=== PATIENT | female | born 1995 | race African-American/Black ===

== ENCOUNTER 2016-11-01 18:30 | Emergency (ER) | payer SELFPAY ==
[~2016-11-01] VITALS: Ht 154.9 cm; Wt 81.6 kg
[2016-11-01 19:00] VITALS: BP 162/62
[2016-11-01 19:56] LABS: BILIRUBIN,URINE NEGATIVE (NEG); GLUCOSE,URINE NEGATIVE (NEG); NITRITE,URINE NEGATIVE (NEG); PROTEIN,URINE NEGATIVE (NEG-TRACE)
[2016-11-01 20:07] LABS: BACTERIA,URINE FEW /HPF (0-FEW); RBC,URINE 0 /HPF (0-2); SQUAMOUS EPITHELIAL CELL,UR FEW /LPF; WBC,URINE OCC /HPF (0-4)
[2016-11-01] MEDS ORDERED: METR500T PO (20:36)
--- NOTE | 2016-11-01 20:36 | PHYS DOC ---
Past Medical History Past Medical History: No Pertinent History Past Surgical History: No Surgical History Additional Information: 7-8 cigarettes daily Alcohol Use: Rarely Drug Use: None Adult General Chief Complaint Chief Complaint: VAGINAL PROBLEM HPI HPI Patient is a 21 year old female who presents with vaginal discharge for 1 week. Patient denies any concerns for STDs. Denies any urgency frequency dysuria. Denies any chance she is . Review of Systems Review of Systems Constitutional: Denies fever or chills [] GI: vaginal discharge for 1 week. : Denies dysuria or hematuria [] Musculoskeletal: Denies back pain or joint pain [] Integument: Denies rash or skin lesions [] Neurologic: Denies headache, focal weakness or sensory changes [] Allergies Allergies Allergies Coded Allergies Type Severity Reaction Last Updated Verified No Known Drug Allergies 12/05/15 No Physical Exam Physical Exam Constitutional: Well developed, well nourished, no acute distress, non-toxic appearance. [] Abdomen: Bowel sounds normal, soft, no tenderness, no masses, no pulsatile masses. [] Pelvic exam External pelvic appears normal, cervix is closed, no CMT, no adnexal tenderness , small amount of white discharge in the vaginal vault. Skin: Warm, dry, no erythema, no rash. [] Back: No tenderness, no CVA tenderness. [] Extremities: No tenderness, no cyanosis, no clubbing, ROM intact, no edema. [] Neurologic: Alert and oriented X 3, normal motor function, normal sensory function, no focal deficits noted. [] Psychologic: Affect normal, judgement normal, mood normal. [] Current Patient Data Vital Signs Vital Signs Date Time Temp Pulse Resp B/P (MAP) Pulse Ox O2 Delivery O2 Flow Rate FiO2 11/01/16 19:00 98.5 87 16 97 Room Air 98.5 Lab Values Laboratory Tests Test 11/01/16 19:12 11/01/16 19:21 Urine Collection Type Unknown Urine Color Yellow Urine Clarity Clear Urine pH 7.0 Urine Specific [place] 1.020 Urine Protein Negative mg/dL (NEG-TRACE) Urine Glucose (UA) Negative mg/dL (NEG) Urine Ketones (Stick) Negative mg/dL (NEG) Urine Blood Negative (NEG) Urine Nitrite Negative (NEG) Urine Bilirubin Negative (NEG) Urine Urobilinogen Dipstick 1.0 mg/dL (0.2 mg/dL) Urine Leukocyte Esterase Negative (NEG) Urine RBC 0 /HPF (0-2) Urine WBC Occ /HPF (0-4) Urine Squamous Epithelial Cells Few /LPF Urine Bacteria Few /HPF (0-FEW) Urine Mucus Mod /LPF POC Urine HCG, Qualitative Hcg negative (Negative) Microbiology 11/01/16 Wet Prep - Final, Complete EKG EKG [] Radiology/Procedures Radiology/Procedures [] Course & Med Decision Making Course & Med Decision Making Pertinent Labs and Imaging studies reviewed. (See chart for details) Patient is in the ED with vaginal discharge for 1 week, no concerns for STDs. Negative urine hCG, urine analysis is negative for infection. Positive for bacterial vaginosis, discharged with Flagyl. Follow-up with [facility] in 1-2 weeks. Dragon Disclaimer Dragon Disclaimer This electronic medical record was generated, in whole or in part, using a voice recognition dictation system. Departure Departure Impression: Primary Impression: Bacterial vaginosis Disposition: HOME, SELF-CARE Condition: STABLE Referrals: NO PCP (PCP) KRYSTINA HAIDER MD follow up in one week Patient Instructions: Bacterial Vaginosis, [id number] Additional Instructions: You tested positive for bacterial vaginosis, this is not a sexually transmitted diseases. We put you on antibiotics to clear this infection. Follow-up with your own [facility] in the next 1-2 weeks. Scripts Metronidazole (FLAGYL) 500 Mg Tablet 1 TAB PO BID, #14 TAB Prov: CONNER ALEXANDRE APRN 11/01/16 CONNER ALEXANDRE APRN Nov 01, 2016 20:36
== END 2016-11-01 20:42 | disposition home or self-care (01) ==
LOC: ER 18:30
DX: N76.0 Acute vaginitis (principal); F17.210 Nicotine dependence, cigarettes, uncomplicated
CPT/HCPCS: 81001; 81025; 87491; 87591; 99284; Q0111

== ENCOUNTER 2017-03-23 04:35 | Emergency (ER) | payer SELFPAY | END 2017-03-23 04:56 | disposition home or self-care (01) | LOC: ER 04:35 | DX: H92.02 Otalgia, left ear (principal) | CPT/HCPCS: 99283 ==

== ENCOUNTER 2017-08-27 09:47 | Emergency (ER) | payer OTHER ==
[2017-08-27] MEDS: ONDANSETRON ODT 4 MG TAB.RAPDIS. PO ×2 (10:26→11:59)
[2017-08-27 10:28] LABS: URINE HCG POC HCG NEGATIVE (Negative)
[2017-08-27 10:32] LABS: BILIRUBIN,URINE NEGATIVE (NEG); CLARITY,URINE CLOUDY; COLOR,URINE YELLOW; GLUCOSE,URINE NEGATIVE (NEG); NITRITE,URINE NEGATIVE (NEG); PROTEIN,URINE NEGATIVE (NEG-TRACE)
[2017-08-27 10:48] LABS: BACTERIA,URINE FEW /HPF (0-FEW); RBC,URINE OCC /HPF (0-2); SQUAMOUS EPITHELIAL CELL,UR FEW /LPF; WBC,URINE OCC /HPF (0-4)
[2017-08-27] MEDS ORDERED: IV NORMAL SALINE 1000ML BAG 1,000 ML IV (11:15)
[2017-08-27] MEDS ORDERED: ONDANSETRON PF 4 MG/2 ML VIAL. IV (11:15)
== END 2017-08-27 12:00 | disposition home or self-care (01) ==
LOC: ER 12:00
DX: R11.0 Nausea (principal); R10.13 Epigastric pain
CPT/HCPCS: 81001; 81025; 99283; Q0162

== ENCOUNTER 2019-06-18 02:58 | Emergency (ER) | payer SELFPAY ==
[~2019-06-18] VITALS: Ht 157.5 cm; Wt 77.2 kg
[~2019-06-18 02:58] MED LIST: METR500T PO; ONDA4TAB10 SL
[2019-06-18 03:09] VITALS: BP 139/77
[2019-06-18] MEDS ORDERED: CLINDAMYCIN VAG (03:34)
--- NOTE | 2019-06-18 03:35 | PHYS DOC ---
Past Medical History Past Medical History: No Pertinent History Past Surgical History: No Surgical History Smoking Status: Current Every Day Smoker Alcohol Use: Occasionally Drug Use: None General Adult EDM: Chief Complaint: VAGINAL PROBLEM HPI: HPI: Patient is a 24 year old female presents with the chief complaint of vaginal itch. Initial onset 2 weeks ago shortly after shaving vaginal area. Patient states she saved again 2 days ago. Tonight itch is worse--- scratched to the point of opening wounds Review of Systems: Review of Systems: Constitutional: Denies fever or chills. [] Eyes: Denies change in visual acuity. [] HENT: Denies nasal congestion or sore throat. [] Respiratory: Denies cough or shortness of breath. [] Cardiovascular: Denies chest pain or edema. [] GI: Denies abdominal pain, nausea, vomiting, bloody stools or diarrhea. [] : Denies dysuria. [] Musculoskeletal: Denies back pain or joint pain. [] Integument: Denies rash. [] Neurologic: Denies headache, focal weakness or sensory changes. [] Endocrine: Denies polyuria or polydipsia. [] Lymphatic: Denies swollen glands. [] Psychiatric: Denies depression or anxiety. [] Heart Score: Risk Factors: Risk Factors: DM, Current or recent (<one month) smoker, HTN, HLP, family history of CAD, obesity. Risk Scores: Score 0 - 3: 2.5% MACE over next 6 weeks - Discharge Home Score 4 - 6: 20.3% MACE over next 6 weeks - Admit for Clinical Observation Score 7 - 10: 72.7% MACE over next 6 weeks - Early Invasive Strategies Allergies: Allergies: Allergies Coded Allergies Type Severity Reaction Last Updated Verified No Known Drug Allergies 12/05/15 No Physical Exam: PE: Constitutional: Well developed, well nourished, no acute distress, non-toxic appearance. [] HENT: Normocephalic, atraumatic, bilateral external ears normal, oropharynx moist, no oral exudates, nose normal. [] Eyes: PERRLA, EOMI, conjunctiva normal, no discharge. [] Neck: Normal range of motion, no tenderness, supple, no stridor. [] Cardiovascular:Heart rate regular rhythm, no murmur [] Lungs & Thorax: Bilateral breath sounds clear to auscultation [] Abdomen: Bowel sounds normal, soft, no tenderness, no masses, no pulsatile masses. [] Skin: Warm, dry, no erythema, no rash. [] Back: No tenderness, no CVA tenderness. [] Extremities: No tenderness, no cyanosis, no clubbing, ROM intact, no edema. [] Neurologic: Alert and oriented X 3, normal motor function, normal sensory function, no focal deficits noted. [] Psychologic: Affect normal, judgement normal, mood normal. [] -- vaginal evaluated with real estate administrative assistant, Open would left labia. Current Patient Data: Labs: Laboratory Tests Test 06/18/19 03:15 POC Urine HCG, Qualitative Hcg negative (Negative) EKG: EKG: [] Radiology/Procedures: Radiology/Procedures: [] Course & Med Decision Making: Course & Med Decision Making Pertinent Labs and Imaging studies reviewed. (See chart for details) []Patient will be placed on clindamycin vaginal cream. Patient can take [id number] Benadryl as needed for itch. Hollie Disclaimer: Hollie Disclaimer: This electronic medical record was generated, in whole or in part, using a voice recognition dictation system. Departure Departure Impression: Primary Impression: Itching in the vaginal area Additional Impression: Vaginitis Disposition: HOME, SELF-CARE Condition: STABLE Referrals: NO PCP (PCP) Patient Instructions: Vaginitis, [id number] Scripts [Clindamycin Cream 2%] No Conflict Check 1 APPFUL VAG DAILY for 7 Days, #1 TUBE Prov: KEVEN DURAN I DO 06/18/19 [clindamycin va] No Conflict Check Prov: KEVEN DURAN I DO 06/18/19 KEVEN DURAN DO Jun 18, 2019 03:35
== END 2019-06-18 03:42 | disposition home or self-care (01) ==
LOC: ER 02:58
DX: N76.0 Acute vaginitis (principal); F17.200 Nicotine dependence, unspecified, uncomplicated
CPT/HCPCS: 81025; 99283

== ENCOUNTER 2019-08-06 22:22 | Emergency (ER) | payer SELFPAY ==
[~2019-08-06] VITALS: Ht 154.9 cm; Wt 82.0 kg
[~2019-08-06 22:22] MED LIST changes: +CLINDAMYCIN VAG
[2019-08-06 23:20] LABS: BILIRUBIN,URINE SMALL (NEG); CLARITY,URINE CLEAR; COLOR,URINE YELLOW; NITRITE,URINE NEGATIVE (NEG); PH,URINE 6.5 (<5.0-8.0); PROTEIN,URINE NEGATIVE (NEG-TRACE)
[2019-08-06 23:27] LABS: SQUAMOUS EPITHELIAL CELL,UR MOD /LPF; U PREG PATIENT NEGATIVE (NEG)
[2019-08-06 23:29] LABS: BACTERIA,URINE FEW /HPF (0-FEW); RBC,URINE 0 /HPF (0-2); WBC,URINE 0 /HPF (0-4)
--- NOTE | 2019-08-07 01:19 | PHYS DOC ---
Past Medical History Past Medical History: No Pertinent History Past Surgical History: No Surgical History Smoking Status: Current Every Day Smoker Alcohol Use: Occasionally Drug Use: None General Adult EDM: Chief Complaint: VAGINAL PROBLEM HPI: HPI: Patient is a 24 year old female who presents for evaluation vaginal area discomfort and itching. She has a discharge present. Symptoms started close to 1 month ago. She states she has a white discharge. She states her last period is due ninth. Patient is 0 para 0. Patient is otherwise benign-appeari ng with no urine symptoms, fever or chills reported Review of Systems: Review of Systems: Constitutional: Denies fever or chills. [] Eyes: Denies change in visual acuity. [] HENT: Denies nasal congestion or sore throat. [] Respiratory: Denies cough or shortness of breath. [] Cardiovascular: Denies chest pain or edema. [] GI: Denies abdominal pain, nausea, vomiting, bloody stools or diarrhea [] : Denies dysuria. [Patient haswhite vaginal discharge and itching in her groin area] Musculoskeletal: Denies back pain or joint pain. [] Integument: Denies rash. [] Neurologic: Denies headache, focal weakness or sensory changes. [] Endocrine: Denies polyuria or polydipsia. [] Lymphatic: Denies swollen glands. [] Psychiatric: Denies depression or anxiety. [] Heart Score: Risk Factors: Risk Factors: DM, Current or recent (<one month) smoker, HTN, HLP, family history of CAD, obesity. Risk Scores: Score 0 - 3: 2.5% MACE over next 6 weeks - Discharge Home Score 4 - 6: 20.3% MACE over next 6 weeks - Admit for Clinical Observation Score 7 - 10: 72.7% MACE over next 6 weeks - Early Invasive Strategies Allergies: Allergies: Allergies Coded Allergies Type Severity Reaction Last Updated Verified No Known Drug Allergies 12/05/15 No Physical Exam: PE: Constitutional: Well developed, well nourished, mild acute distress, non-toxic appearance. [] HENT: Normocephalic, atraumatic, bilateral external ears normal, oropharynx moist, no oral exudates, nose normal. [] Eyes: PERRL, EOMI, conjunctiva normal, no discharge. [] Neck: Normal range of motion, no tenderness, supple, no stridor. [] Cardiovascular:Heart rate regular rhythm, no murmur [] Lungs & Thorax: Bilateral breath sounds clear to auscultation [] Abdomen: Bowel sounds normal, soft, no tenderness, no masses. [] Skin: Warm, dry, no erythema, no rash. [] Back: No tenderness, no CVA tenderness. [] Extremities: No tenderness, no cyanosis, no clubbing, ROM intact, no edema. [] Neurologic: Alert and oriented X 3, normal motor function, normal sensory function, no focal deficits noted. [] Psychologic: Affect normal, judgement normal, mood normal. : Nursing room worker present, white discharge present, no external lesions present, no bleeding, no adnexal or uterine tenderness [] Current Patient Data: Labs: Laboratory Tests Test 08/06/19 22:24 Urine Collection Type Unknown Urine Color Yellow Urine Clarity Clear Urine pH 6.5 (<5.0-8.0) Urine Specific [place] >=1.030 (1.000-1.030) Urine Protein Negative mg/dL (NEG-TRACE) Urine Glucose (UA) Negative mg/dL (NEG) Urine Ketones (Stick) Trace mg/dL (NEG) Urine Blood Negative (NEG) Urine Nitrite Negative (NEG) Urine Bilirubin Small (NEG) Urine Urobilinogen Dipstick 1.0 mg/dL (0.2 mg/dL) Urine Leukocyte Esterase Negative (NEG) Urine RBC 0 /HPF (0-2) Urine WBC 0 /HPF (0-4) Urine Squamous Epithelial Cells Mod /LPF Urine Bacteria Few /HPF (0-FEW) Urine Mucus Marked /LPF Urine Test Negative (NEG) Vital Signs: Vital Signs Date Time Temp Pulse Resp B/P (MAP) Pulse Ox O2 Delivery O2 Flow Rate FiO2 08/06/19 22:35 98.5 103 16 141/76 (97) 100 Room Air 98.5 EKG: EKG: [] Radiology/Procedures: Radiology/Procedures: [] Course & Med Decision Making: Course & Med Decision Making Pertinent Labs and Imaging studies reviewed. (See chart for details) [] Dragon Disclaimer: Dragon Disclaimer: This electronic medical record was generated, in whole or in part, using a voice recognition dictation system. 0130 stable, pelvic exam complete. She has white discharge present. Patient prophylactically treated with Diflucan, Zithromax and Rocephin Departure Departure Impression: Primary Impression: Vaginitis Qualified Codes: N76.0 - Acute vaginitis Additional Impression: Vaginal candidiasis Disposition: 01 HOME, SELF-CARE Condition: STABLE Referrals: NO PCP (PCP) KRYSTINA HAIDER MD Patient Instructions: Candidal Vulvovaginitis, [id number], Vaginitis, [id number] Additional Instructions: Pelvic rest, no intercourse until symptoms significant proved over the next several days, if you need additional treatment for the yeast infection you can get [id number] Monistat Justicifation of Admission Dx: Justifications for Admission: Justification of Admission Dx: N/A ANITA CHU DO Aug 07, 2019 01:19
[2019-08-07] MEDS: cefTRIAXone IM 250 MG VIAL IM ONE ×2 (02:00→02:05)
[2019-08-07] MEDS ORDERED: FLUCONAZOLE 100 MG TABLET. PO ONE (02:00)
[2019-08-07] MEDS ORDERED: AZITHROMYCIN 250 MG TABLET. PO ONE (02:00)
[2019-08-07 02:10] VITALS: BP 119/76
== END 2019-08-07 02:15 | disposition home or self-care (01) ==
LOC: ER 22:22
DX: N76.0 Acute vaginitis (principal); B37.3 Candidiasis of vulva and vagina; B96.89 Other specified bacterial agents as the cause of diseases classified elsewhere; F17.200 Nicotine dependence, unspecified, uncomplicated
CPT/HCPCS: 81001; 81025; 87491; 87591; 99285; Q0111; J0696